=== PATIENT | female | born 1950 | race Caucasian/White ===

== ENCOUNTER 2017-10-28 18:42 | Emergency (ER) | payer OTHER ==
[2017-10-28] MEDS: DEXAMETHASONE 10 MG/ML 1 ML INJ PO (20:25)
[2017-10-28] MEDS: KETOROLAC 30 MG INJ IM (20:25)
== END 2017-10-28 22:20 | disposition home or self-care (01) ==
LOC: FTE 18:42
DX: M54.5 Low back pain (principal); E11.9 Type 2 diabetes mellitus without complications
CPT/HCPCS: 73510; 73630-LT; 96372; 99284-25

== ENCOUNTER 2018-04-28 14:36 | Emergency (ER) | payer OTHER ==
[2018-04-28] MEDS: IBUPROFEN 600 MG TAB PO (19:01)
== END 2018-04-28 20:04 | disposition home or self-care (01) ==
LOC: FTE 14:36
DX: S90.112A Contusion of left great toe without damage to nail, initial encounter (principal); E11.9 Type 2 diabetes mellitus without complications; W20.8XXA Other cause of strike by thrown, projected or falling object, initial encounter; Y92.9 Unspecified place or not applicable
CPT/HCPCS: 73630; 73630-LT; 99283-25

== ENCOUNTER 2018-09-06 12:33 | Emergency (ER) | payer OTHER ==
[2018-09-06] MEDS: KETOROLAC 30 MG INJ IV (13:43)
== END 2018-09-06 15:50 | disposition home or self-care (01) ==
LOC: FTE 15:50
DX: R51 Headache (principal); E11.9 Type 2 diabetes mellitus without complications; Z79.82 Long term (current) use of aspirin
CPT/HCPCS: 70450; 96374; 99285-25

== ENCOUNTER 2019-02-01 12:01 | Emergency (ER) | payer OTHER | END 2019-02-01 14:39 | disposition home or self-care (01) | LOC: FTE 12:01 | DX: S69.91XA Unspecified injury of right wrist, hand and finger(s), initial encounter (principal); E11.9 Type 2 diabetes mellitus without complications; X58.XXXA Exposure to other specified factors, initial encounter; Y92.9 Unspecified place or not applicable; Z79.82 Long term (current) use of aspirin | CPT/HCPCS: 73130; 73130-RT; 99283-25 ==